=== PATIENT | female | born 2000 | race Caucasian/White ===

== ENCOUNTER 2018-12-19 04:20 | Inpatient (IN) | payer MEDICAID, OTHER ==
[2018-12-19] VITALS (26 sets, daily range): BP systolic 98–135; BP diastolic 49–80
[~2018-12-19] VITALS: Ht 152.4 cm; Wt 62.0 kg
[~2018-12-19 04:20] MED LIST: MACR100C43 PO; MAPA500T2 PO; MULTCAP PO
[2018-12-19 06:03] LABS: HEMATOCRIT 29.3 % (36.0-47.0); HEMOGLOBIN 9.4 g/dl (12.0-15.5); MEAN CORPUSCULAR HEMOGLOBIN 29.2 pg (27.0-33.0); MEAN CORPUSCULAR HGB CONC 32.1 g/dl (32.0-36.5); PLATELET COUNT, AUTOMATED 285 10^3/uL (150-450); RED BLOOD COUNT 3.22 10^6/uL (4.00-5.40); WHITE BLOOD COUNT 10.5 10^3/uL (4.0-10.0)
[2018-12-19] MEDS ORDERED: OXYTOCIN 30 UNITS IN 0.9% NaCl 500ML IV BAG (J2590) As Ordered ONE (07:28)
[2018-12-19] MEDS ORDERED: LACTATED RINGER'S 1000 ML IV STA (07:36)
[2018-12-19] MEDS: LR 1,000 ML IV SCH ×2 (08:06→09:46)
[2018-12-19] MEDS ORDERED: FENTANYL 2MCG/ML ROPIVACAINE 0.2% IN 0.9% NACL 100ML IVBAG As Ordered ONE (08:32)
[2018-12-19] MEDS ORDERED: EPIDURAL COMMENT XX SCH (11:00)
[2018-12-19] MEDS ORDERED: REFRIGERATOR IV KEYS XX PRN (11:00)
[2018-12-19] MEDS ORDERED: NALOXONE INJ 0.4 MG/1 ML VIAL (J2310) IV PRN (11:00)
[2018-12-19] MEDS ORDERED: ONDANSETRON 4MG/2ML VIAL (J2405) IV PRN (11:00)
[2018-12-19] MEDS ORDERED: diphenhydrAMINE INJ 50MG/ML VIAL (J1200) IV PRN (11:00)
[2018-12-19] MEDS ORDERED: ePHEDrine SULFATE 25 MG/5 ML(5MG/ML) SYRINGE IV PRN (11:00)
[2018-12-19] MEDS ORDERED: EPIDURAL/PCA KEYS XX PRN (11:00)
[2018-12-19] MEDS ORDERED: FENTANYL/ROPIVACAINE/NACL BAG 100 ML EPIDURAL SCH (11:00)
--- NOTE | 2018-12-19 11:39 | IPNPDOC ---
Obstetrical Progress Note Date of Service December 19, 2018 Subjective Patient reports she is comfortable with her epidural. Objective Vital Signs Date Time Temp Pulse Resp B/P (MAP) Pulse Ox O2 Delivery O2 Flow Rate FiO2 12/19/18 07:22 90 18 125/60 (81) 12/19/18 06:22 98.4 Assessment Heart Rate (FHR): 120 Variability: Moderate Accelerations: Positive Decelerations: None Heart Rate Tracing: Category I Tocometer Contractions: Yes Frequency: irregular, other (4-11 minutes) Sterile Vaginal Examination Dilation: 5 cm Effacement (%): 90% Station: -1, 0 Cervical Consistency: Soft Cervical Position: Anterior Postion/Presentation: Cephalic presentation Assessment and Plan EGA at Admission: 39.1 Status: Reassuring Group B Streptococcus: Negative Anticipate: Vaginal Delivery Additional Comments AROM to a small amount of clear fluid. IV Pitocin ordered and to be started per order. MIKE ROSA CNM December 19, 2018 11:39
[2018-12-19] MEDS ORDERED: OXYTOCIN DRIP 30 UNITS in APPROPRIATE DILUENT 1 EA IV SCH ×2 (11:45→12:57)
[2018-12-19] MEDS ORDERED: IBUPROFEN 600 MG TAB PO PRN (13:00)
[2018-12-19] MEDS ORDERED: ACETAMINOPHEN TAB 650MG DOSE (2X325MG) PO PRN (13:00)
[2018-12-19] MEDS ORDERED: MEASLES,MUMPS,RUBELLA VACCINE INJ (MMR-II) (90707) SC SCH (13:00)
[2018-12-19] MEDS ORDERED: ACETAMINOPHEN 500 MG TAB PO PRN (13:00)
[2018-12-19] MEDS ORDERED: DOCUSATE SODIUM 100 MG CAP PO PRN (13:00)
[2018-12-19] MEDS ORDERED: RHOGAM 300 MCG (1500 IU) INJ (J2790) IM SCH (13:00)
[2018-12-19] MEDS ORDERED: ANUSOL HC CREAM 30GM TOP PRN (13:00)
[2018-12-19] MEDS ORDERED: DIBUCAINE 1% OINTMENT 30GM TOP PRN (13:00)
[2018-12-19] MEDS ORDERED: METHYLERGONOVINE MALEATE 0.2 MG TAB PO PRN (13:00)
--- NOTE | 2018-12-19 13:29 | HPE ---
DATE OF ADMISSION: 12/19/2018 HISTORY OF PRESENT ILLNESS: The patient is a 18-year-old female who is a 2, para 1-0-0-1 at 39 weeks 1 day gestation with an ORALIA of 12/26/2018 based off of a second trimester ultrasound. The patient initiated care in her second trimester in [facility]. She has not initiated any care nor been seen for any care since she was 31 weeks gestation. Her has essentially been normal. The patient presents to labor and delivery with complaints of contractions. She denies leaking of fluid, vaginal bleeding. She reports active movement. PAST MEDICAL HISTORY: She has a history of benign heart murmur as a child, asthma, stomach ulcer with H pylori that resolved in 2015, and depression. SURGICAL HISTORY: She had her wisdom teeth taken out in 2014. FAMILY HISTORY: Her mother had cardiac arrest and need for pacemaker after delivery. SOCIAL HISTORY: The patient is a former smoker. She has no history of drug abuse or alcohol abuse. No history of any sexually transmitted infections. ALLERGIES: AMOXICILLIN, CLEOCIN VAGINAL CREAM, METRONIDAZOLE. CURRENT MEDICATIONS: - albuterol inhaler as needed - vitamins OBSTETRICAL HISTORY: She had a spontaneous vaginal delivery on 11/24/2017 at 39 weeks to a living male who weighed 6 pounds 7 ounces with no complications. LABORATORIES: The patient is AB positive, VDRL and RPR nonreactive, Rubella immune. Her hepatitis B surface antigen is negative. Her gonorrhea and chlamydia are negative. Her hemoglobin and hematocrit on 10/08/2018 was 9.7 and 29. Her one hour Glucola was 159. Her 3-hour glucose tolerance test at 1 hour was 150, 2 hours was 110, 3 hours was 113. She is also Group B streptococcus (GBS) negative. heart rate is 130 with moderate variability, positive accelerations. No decelerations. Contractions are every 1 to 6 minutes. Vaginal exam: 5 cm, 90% effaced, -1 station, anterior position, and soft. Vital signs: 98.9, 111, 18, 107/66 PHYSICAL ASSESSMENT: GENERAL: Alert and oriented times three. RESPIRATORY: Regular rate with no use of accessory muscles. ABDOMEN: Gravid, soft to palpation between contractions. EXTREMITIES: Lower extremities with generalized edema. No pitting edema. No clonus. ASSESSMENT: 1. Intrauterine at 39 weeks 1 day gestation. 2. Active labor. 3. Group B streptococcus (GBS) negative. 4. Category 1 heart rate tracing. PLAN: Admit to labor and delivery, out of bed as desired. Clear liquid diet. Saline lock with laboratories per unit protocol. Anesthesia consult per patient's request. Lactated Ringer 800 mL bolus prior to epidural then 125 mL per hour. Anticipate cervical change and spontaneous vaginal delivery. MTDD
[2018-12-19] MEDS: PRENATAL VITAMINS CHEWABLE TABLET PO SCH (14:00)
[2018-12-19] MEDS: IBUPROFEN 800 MG TAB PO PRN (16:17)
[2018-12-20] MEDS: IBUPROFEN 800 MG TAB PO PRN ×3 (00:36→20:47)
[2018-12-20 06:21] VITALS: BP 121/57
[2018-12-20] MEDS: PRENATAL VITAMINS CHEWABLE TABLET PO SCH (07:48)
--- NOTE | 2018-12-20 13:13 | DN ---
DATE: 12/19/2018 DELIVERY SUMMARY NOTE DELIVERY DATE AND TIME: 12/19/2018 at 12:39 p.m. STATUS: Spontaneous vaginal delivery. Delivered. PROVIDER: Latoya Mancilla CNM, WHNP ANESTHESIA: Epidural. ESTIMATED BLOOD LOSS: 300 mL. FINDINGS: Male, 6 pounds 7 ounces, 2930 grams, scores 8/9. Patient is a 18-year-old female who is now a 2, para 2-0-0-2 at 39 weeks and 1 day gestation, who presented to labor and delivery in active labor. The patient received an epidural for pain management. She progressed to fully dilated at 1229 hours and pushed to a living male in the right occiput anterior (ANNE) position with restitution to right occiput transverse (ROT). The anterior shoulder delivered with ease and the corpus immediately followed. The baby was placed on the maternal abdomen, active and crying. The cord was clamped times two after 3 minutes and cut by the father of the baby. A three-vessel cord was noted. The placenta delivered spontaneously and intact at 1244 hours. Uterine hemostasis was achieved via rapid infusion of IV Pitocin and fundal massage. The perineum, cervix, vagina was inspected and found to have a left vaginal wall abrasion that did not need repair due to good hemostasis. There was some slight swelling in the perineum. The patient plans to breastfeed her . Both mom and baby are in stable condition. All counts and instruments are correct. MTDD
[2018-12-20 18:00] VITALS: BP 109/58
[2018-12-21] MEDS: IBUPROFEN 800 MG TAB PO PRN (04:26)
[2018-12-21 05:57] VITALS: BP 113/58
[2018-12-21] MEDS: PRENATAL VITAMINS CHEWABLE TABLET PO SCH (08:05)
--- NOTE | 2018-12-21 10:22 | NUR ---
Day 2 Status post , uncomplicated Subjective Pain is well controlled. Lochia decreasing and minimal. Voiding spontaneously. Tolerating a regular diet. Ambulating without any assistance. Denies any subjective fever/chills/nausea/vomiting/headache/visual changes/shortness of breath/chest pain. Breast feeding. Objective Vitals: Normotensive, normal heart rate, afebrile, adequate urine output. Heart: regular, rate, and rhythm. no murmurs/gallops/rubs Lungs: clear to auscultation bilaterally, no wheezes/crackles/rales/ronchi Abd: soft, nontender, nondistended, uterine fundus is 2cm below umbilicus and firm Ext: no significant edema, nontender, negative Tucker's bilaterally. Assessment/Plan: day 2. Recovering well. Hemodynamically stable, afebrile, good pain control. -Routine care -Discharge to home today -Routine infectious, fever, pain, and bleeding precautions reviewed Dr. Carl Carey D.O., F.A.C.O.G.
[2018-12-21] MEDS ORDERED: IBUP80TA PO (10:24)
== END 2018-12-21 13:15 | disposition home or self-care (01) | DRG 560 ==
LOC: M LDO 04:20 → M LDI 04:58 → M OBS 15:55
PROVIDERS: ADMIT Obstetrics & Gynecology; ATTEND Obstetrics & Gynecology
PROC: 10E0XZZ Delivery of Products of Conception, External Approach (ICD-10-PCS; principal; 2018-12-19)
DX: O80 Encounter for full-term uncomplicated delivery (principal); Z37.0 Single live birth; Z3A.39 39 weeks gestation of pregnancy